=== PATIENT | male | born 1980 | race Asian ===

== ENCOUNTER 2024-03-26 18:05 | Emergency (ER) | payer MEDICAID, OTHER ==
[~2024-03-26] VITALS: Ht 175.3 cm; Wt 104.3 kg
[2024-03-26 18:11] VITALS: O2SAT 98
[2024-03-26 18:42] LABS: BASOPHILS % 0.8 % (0.0-2.0); HEMATOCRIT. 44.6 % (42.0-52.0); HEMOGLOBIN. 15.4 g/dL (14.0-18.0); LYMPHOCYTES % 15.2 % (20.0-50.0); MEAN CORPUSCULAR HEMOGLOBIN 31.8 pg (28.0-32.0); MEAN CORPUSCULAR HGB CONC 34.5 g/dL (31.0-37.0); MEAN CORPUSCULAR VOLUME 92.1 fL (80.0-94.0); MEAN PLATELET VOLUME 7.1 fl (7.4-10.4); MONOCYTES % 8.7 % (2.0-8.0); NEUTROPHILS % 73.3 % (40.0-76.0); PLATELET 366 x1000/uL (130-400); RED BLOOD CELL COUNT 4.84 mill/uL (4.7-6.1); RED CELL DISTRIBUTION WIDTH 12.9 % (11.6-14.6)
[2024-03-26 18:52] LABS: CALCIUM 9.7 mg/dL (8.7-10.4); CARBON DIOXIDE 29 mEq/L (21-32); CHLORIDE 104 mEq/L (98-107); POTASSIUM 4.5 mEq/L (3.5-5.1); SODIUM 136 mEq/L (136-145)
[2024-03-26 18:57] LABS: GLUCOSE 96 mg/dL (70-105)
[2024-03-26 18:58] LABS: UREA NITROGEN BLOOD 11 mg/dL (9-23)
[2024-03-26] MEDS: KETOROLAC 30MG/ML VIAL IV STA (23:04)
[2024-03-26] MEDS: DEXAMETHASONE 4MG/ML 1ML VIAL IV ONE (23:15)
[2024-03-27] MEDS: SODIUM CHLORIDE 0.9% 1,000 ML IV ONE (00:33)
[2024-03-27 00:35] LABS: CLARITY URINE CLEAR (CLEAR); COLOR URINE YELLOW (YELLOW); GLUCOSE URINE NEGATIVE (NEGATIVE); KETONES URINE TRACE (NEGATIVE); LEUKOCYTE ESTERASE URINE TRACE (NEGATIVE); NITRITE URINE NEGATIVE (NEGATIVE); OCCULT BLOOD URINE 2+ (NEGATIVE); PROTEIN URINE 1+ (NEGATIVE); SPECIFIC GRAVITY URINE 1.027 (1.005-1.030)
[2024-03-27] MEDS ORDERED: CLINDAMYCIN 600 MG in DEXTROSE 5% WATER 50 ML IV ONE (01:15)
[2024-03-27] MEDS ORDERED: CLIN-194 MT (01:57)
[2024-03-27] MEDS ORDERED: NAPR-681 MT (01:57)
[2024-03-27] MEDS: CEFTRIAXONE 2GM/50ML 50 ML IV STA (02:13)
[2024-03-27] MEDS: CLINDAMYCIN 600MG PREMIX 50 ML IV NR (02:47)
[2024-03-27 03:02] LABS: WBC URINE 0-2 /hpf (0-2)
[2024-03-27 03:03] LABS: BACTERIA URINE NONE SEEN; SQUAMOUS EPITHELIAL CELL URINE NONE SEEN /lpf (RARE/1+)
[2024-03-27 03:29] VITALS: BP 142/80; PULSE 88; RESP 16; TEMP 36.94740; O2SAT 98
[2024-03-27] MEDS ORDERED: IOHEXOL-300 100 ML BOTTLE ONE (05:39)
== END 2024-03-27 03:34 | disposition home or self-care (01) ==
LOC: ER 18:14
DX: J36 Peritonsillar abscess (principal)
CPT/HCPCS: 80048; 83605; 85025; 87040; 36415; 99285; 81003; 70491; 96374; 96375; J7030; Q9967; J0696; J1100; J1885; J3490; Z7610 ×2; J7060